=== PATIENT | female | born 1945 | race Two or more races ===

== ENCOUNTER 2020-05-31 14:01 | Inpatient (IN) | payer OTHER ==
[2020-05-31 14:18] VITALS: BMI 29.2
--- NOTE | 2020-05-31 14:35 | PDOC ---
History of Present Illness - General Chief Complaint: Palpitations Stated Complaint: HEART RACING History Source: Patient Exam Limitations: No Limitations - History of Present Illness Initial Comments: 05/31/20 14:32 74 yo F with h/o CHF, HTN here with c/o palpitations and sob x 2 days. pt describes racing heart beats. feels fatigued with walking. palpitations come and go worse when walking. no h/o pe or dvt. no known h/o covid. no f/c no cough. does report a sore throat. no recent leg swelling. no f/c no chest pain. no prior cardiac workup, does not smoke, family h/o CAD mother with RI in 50's Past History - Medical History Allergies/Adverse Reactions: Allergies Allergy/AdvReac Type Severity Reaction Status Date / Time No Known Allergies Allergy Verified 05/31/20 14:08 Home Medications: Ambulatory Orders Famotidine [Pepcid] 40 mg PO DAILY 05/31/20 Hydrochlorothiazide 25 mg PO DAILY 05/31/20 Losartan Potassium 50 mg PO DAILY 05/31/20 COPD: No HTN: Yes - Reproductive History Is Patient Now?: No - Psycho-Social/Smoking History Smoking History: Never smoked - Substance Abuse Hx (Audit-C & DAST Scrn) How often the patient has a drink containing alcohol: Never Score: In Men: 4 or > Positive; In Women: 3 or > Positive: 0 Screen Result (Pos requires Nsg. Audit-10AR): Negative In the last yr the pt used illegal drug/Rx for NonMed reason: No Score: Yes response is considered Positive: 0 Screen Result (Positive result requires Nsg. DAST-10): Negative Review of Systems - Review of Systems Constitutional: No: Chills, Fever HEENTM: Yes: Throat Pain. No: Eye Pain Respiratory: Yes: Shortness of Breath. No: Cough Cardiac (ROS): Yes: Palpitations. No: Chest Pain ABD/GI: No: See HPI, Abdominal Distended : No: Burning, Dysuria, Discharge, Lesions Integumentary: No: Bruising, Change in Color All Other Systems: Reviewed and Negative *Physical Exam - Vital Signs Last Vital Signs Temp Pulse Resp BP Pulse Ox 98.8 F 62 17 122/67 100 05/31/20 14:01 05/31/20 14:01 05/31/20 14:01 05/31/20 14:01 05/31/20 14:01 - Physical Exam 05/31/20 14:34 awake alert lungs clear bilat normal effort. heart rrr no mrg ab dsoft nt nd ext wwp. no appreicated edema. no calf tenderenss. Heart Score/ECG Review #1 General ECG Interpretation: Sinus Rhythm, Normal Rate, Normal Intervals, No acute ischemic changes (TWI III only.) ED Treatment Course - LABORATORY CBC & Chemistry Diagram: 05/31/20 14:30 05/31/20 14:30 Medical Decision Making - Medical Decision Making 05/31/20 14:34 74 yo F with h/o htn chf here w c/o sob and palpitations. differerential anemia. acs. dysrhythmia, electrolyte abnormality, 05/31/20 16:25 pt with normal labs except mild elevation trop 0.6. ekg sinus bradycardia. no st elevation or depression. cxr with bibasilar changes, questionable infiltrate at left base. bnp normal. possible covid vs. myocarditis, vs angina, mi. given assa. will admit to telemetry. Discharge - Discharge Information Problems reviewed: Yes Clinical Impression/Diagnosis: Palpitations, ACS (acute coronary syndrome), Suspected COVID-19 virus infection , Elevated troponin I level Condition: Stable - Admission Yes - Follow up/Referral - Patient Discharge Instructions - Post Discharge Activity
[2020-05-31 14:55] LABS: BASO % 0.9 % (0-2.0); EOS % 1.5 % (0-4.5); HEMATOCRIT 36.7 % (32.4-45.2); HEMOGLOBIN 12.1 GM/dl (10.7-15.3); LYMPH % 31.5 % (8-40); MCH 29.5 pg (25.7-33.7); MCHC 32.8 g/dl (32.0-36.0); MEAN CELL VOLUME 89.9 fl (80-96); MONO % 8.6 % (3.8-10.2); NEUT % 57.5 % (42.8-82.8); PLATELET COUNT 282 K/MM3 (134-434); RBC 4.09 M/mm3 (3.60-5.2); RDW 12.7 % (11.6-15.6); WHITE BLOOD COUNT 6.2 K/mm3 (4.0-10.8)
[2020-05-31 15:02] LABS: ALBUMIN 3.7 g/dl (3.4-5.0); BILIRUBIN,TOTAL 1.4 mg/dl (0.2-1); CALCIUM 8.9 mg/dl (8.5-10); CREATININE 0.7 mg/dl (0.55-1.3); POTASSIUM 3.1 mmol/L (3.5-5.1); TOT PROT 6.8 g/dl (6.4-8.2)
[2020-05-31] MEDS ORDERED: ASPIRIN 81 MG CHEWABLE TABLETS PO ONE (15:17)
[2020-05-31] MEDS ORDERED: POTASSIUM CHLORIDE TABS 20 MEQ TABLET.ER (FP) PO ONE ×2 (15:18→15:19)
[2020-05-31] MEDS ORDERED: ASPIRIN 81 MG CHEWABLE TABLETS ONE (15:19)
[2020-05-31 16:18] LABS: N-TERMINAL BNP 274.2 pg/ml (5-450)
[2020-05-31 18:12] LABS: EPITHELIAL CELLS FEW /hpf
--- NOTE | 2020-05-31 22:03 | HP ---
CHIEF COMPLAINT: Palpations, SOB PCP: HISTORY OF PRESENT ILLNESS: This is a 74 y/o female with a PMHx of HTN, GERD. Who presents to the ED with palpations and SOB x started while at rest. Patient describes the palpations as 3 horses running across her chest lasting 30-40 minutes with SOB. She denies having chest pain, fever, chills, cough, dizziness, NICKERSON, nausea, diarrhea, constipation, dysuria. Patient denies sick contacts or recent travel. ER course was notable for: (1) EKG- Sinus Bradycardia with nonspecfic T wave abnormality (2) Chest Xray- cardiomegaly, increased markings, ? infiltrate left base (3) Troponin- 0.06 Recent Travel: None PAST MEDICAL HISTORY: HTN GERD PAST SURGICAL HISTORY: C- Section Social History: Smoking: Never Alcohol: None Drugs: None Lives with spouse, independent Allergies No Known Allergies Allergy (Verified 05/31/20 14:08) HOME MEDICATIONS: Home Medications Medication Instructions Recorded Famotidine [Pepcid] 40 mg PO DAILY 05/31/20 Hydrochlorothiazide 25 mg PO DAILY 05/31/20 Losartan Potassium 50 mg PO DAILY 05/31/20 REVIEW OF SYSTEMS CONSTITUTIONAL: Absent: fever, chills, diaphoresis, generalized weakness, malaise, loss of appetite, weight change HEENT: Absent: rhinorrhea, nasal congestion, throat pain, throat swelling, difficulty swallowing, mouth swelling, ear pain, eye pain, visual changes CARDIOVASCULAR: palpitations Absent: chest pain, syncope, irregular heart rate, lightheadedness, peripheral edema RESPIRATORY: shortness of breath Absent: cough, dyspnea with exertion, orthopnea, wheezing, stridor, hemoptysis GASTROINTESTINAL: Absent: abdominal pain, abdominal distension, nausea, vomiting, diarrhea, constipation, melena, hematochezia GENITOURINARY: Absent: dysuria, frequency, urgency, hesitancy, hematuria, flank pain, genital pain MUSCULOSKELETAL: Absent: myalgia, arthralgia, joint swelling, back pain, neck pain SKIN: Absent: rash, itching, pallor HEMATOLOGIC/IMMUNOLOGIC: Absent: easy bleeding, easy bruising, lymphadenopathy, frequent infections ENDOCRINE: Absent: unexplained weight gain, unexplained weight loss, heat intolerance, cold intolerance NEUROLOGIC: Absent: headache, focal weakness or paresthesias, dizziness, unsteady gait, seizure, mental status changes, bladder or bowel incontinence PSYCHIATRIC: Absent: anxiety, depression, suicidal or homicidal ideation, hallucinations. PHYSICAL EXAMINATION Vital Signs - 24 hr 05/31/20 05/31/20 05/31/20 14:01 14:45 15:36 Temperature 98.8 F Pulse Rate 62 Pulse Rate [ 54 L 55 L Apical] Respiratory 17 10 18 Rate Blood Pressure 122/67 Blood Pressure 111/55 L 124/55 L [Left Arm] O2 Sat by Pulse 100 99 100 Oximetry (%) 05/31/20 05/31/20 05/31/20 16:24 18:31 20:00 Temperature 99.4 F 98.2 F Pulse Rate 60 57 L Pulse Rate [ 54 L Apical] Respiratory 18 18 16 Rate Blood Pressure 112/46 L 119/62 Blood Pressure 133/57 L [Left Arm] O2 Sat by Pulse 100 99 Oximetry (%) GENERAL: Awake, alert, and fully oriented, in no acute distress. HEAD: Normal with no signs of trauma. EYES: Pupils equal, round and reactive to light, extraocular movements intact, sclera anicteric, conjunctiva clear. No lid lag. EARS, NOSE, THROAT: Ears normal, nares patent, oropharynx clear without exudates. Moist mucous membranes. NECK: Normal range of motion, supple without lymphadenopathy, JVD, or masses. LUNGS: Breath sounds equal, clear to auscultation bilaterally. No wheezes, and no crackles. No accessory muscle use. HEART: Regular rate and rhythm, normal S1 and S2 without murmur, rub or gallop. ABDOMEN: Soft, nontender, not distended, normoactive bowel sounds, no guarding, no rebound, no masses. No hepatomegaly or splenomegaly. MUSCULOSKELETAL: Normal range of motion at all joints. No bony deformities or tenderness. No CVA tenderness. UPPER EXTREMITIES: 2+ pulses, warm, well-perfused. No cyanosis. No clubbing. No peripheral edema. LOWER EXTREMITIES: 2+ pulses, warm, well-perfused. No calf tenderness. No peripheral edema. NEUROLOGICAL: Cranial nerves II-XII intact. Normal speech. Gait not observed. PSYCHIATRIC: Cooperative. Good eye contact. Appropriate mood and affect. SKIN: Warm, dry, normal turgor, no rashes or lesions noted, normal capillary refill. Laboratory Results - last 24 hr 05/31/20 05/31/20 05/31/20 14:30 14:30 14:30 WBC 6.2 RBC 4.09 Hgb 12.1 Hct 36.7 MCV 89.9 MCH 29.5 MCHC 32.8 RDW 12.7 Plt Count 282 MPV 9.0 Absolute Neuts (auto) 3.6 Neutrophils % 57.5 Lymphocytes % 31.5 Monocytes % 8.6 Eosinophils % 1.5 Basophils % 0.9 D-Dimer Sodium 135 L Potassium 3.1 L Chloride 101 Carbon Dioxide 27 Anion Gap 7 L BUN 13.0 Creatinine 0.7 Est GFR (CKD-EPI)AfAm 97.54 Est GFR (CKD-EPI)NonAf 84.16 Random Glucose 122 H Calcium 8.9 Ferritin Total Bilirubin 1.4 H AST 23 ALT 17 Alkaline Phosphatase 59 LD Total Troponin I 0.06 H B-Natriuretic Peptide 274.2 Total Protein 6.8 Albumin 3.7 Urine Color Urine Appearance Urine pH Urine Protein Urine Glucose (UA) Urine Ketones Urine Blood Urine Nitrite Urine Bilirubin Urine Urobilinogen Ur Leukocyte Esterase Urine RBC Urine WBC Ur Transition Epith Cell 05/31/20 05/31/20 05/31/20 17:00 17:00 17:00 WBC RBC Hgb Hct MCV MCH MCHC RDW Plt Count MPV Absolute Neuts (auto) Neutrophils % Lymphocytes % Monocytes % Eosinophils % Basophils % D-Dimer 225 Sodium Potassium Chloride Carbon Dioxide Anion Gap BUN Creatinine Est GFR (CKD-EPI)AfAm Est GFR (CKD-EPI)NonAf Random Glucose Calcium Ferritin 166.2 Total Bilirubin AST ALT Alkaline Phosphatase LD Total 127 Troponin I B-Natriuretic Peptide Total Protein Albumin Urine Color Yellow Urine Appearance Clear Urine pH 6.5 Urine Protein Negative Urine Glucose (UA) Negative Urine Ketones Negative Urine Blood Trace-intact Urine Nitrite Negative Urine Bilirubin Negative Urine Urobilinogen 0.2 Ur Leukocyte Esterase Negative Urine RBC 0-2 Urine WBC 0-1 Ur Transition Epith Cell Few ASSESSMENT/PLAN: This is a 74 y/o female with a PMHx of HTN, GERD. Admitted for ACS, Troponinemia, SVT unknown etiology for further evaluation of their emergent condition. Plan: See Problem List DVT ppx OOB SCDs Heparin SQ Code Status: Full Code Dispo: Requires Inpatient Care Family Medical History Family History: As Documented Family Hx Coronary Artery Disease: Mother (HTN) Family Hx Diabetes: Father Problem List - Problem (1) ACS (acute coronary syndrome) Assessment/Plan: r/o [place] HEART Score 4 TAMARA 2 Serial Enzymes Chest Xray reviewed EKG- SB TWI Appreciate Cardiology consult Asa given in ED, will continue Continue cardiac monitoring Echo- defer to Technical Services Analyst Code(s): I24.9 - ACUTE ISCHEMIC HEART DISEASE, UNSPECIFIED (2) Palpitations Assessment/Plan: r/o ACS vs Suspected COVID 19 Infection Chest Xray- reviewed Appreciate Cardiology consult Continue cardiac monitoring Monitor CBC, CMP Code(s): R00.2 - PALPITATIONS (3) Suspected COVID-19 virus infection Assessment/Plan: SMART-AGENT BASED MODELER 0, low risk COVID PCR-pending Strict Isolation Precautions Code(s): Z20.828 - CONTACT W AND EXPOSURE TO OTH VIRAL COMMUNICABLE DISEASES (4) Elevated troponin I level Assessment/Plan: r/o [place] Serial enzymes Appreciate Cardiology consult EKG- SB with TWI Chest Xray reviewed- cardiomegaly, central markings, ?infiltrate developing at left base Asa given, will continue Monitor CMP Continue cardiac monitoring Code(s): R79.89 - OTHER SPECIFIED ABNORMAL FINDINGS OF BLOOD CHEMISTRY (5) HTN (hypertension) Assessment/Plan: stable Monitor BP Continue home med Code(s): I10 - ESSENTIAL (PRIMARY) HYPERTENSION (6) GERD (gastroesophageal reflux disease) Assessment/Plan: stable Continue PPI Code(s): K21.9 - GASTRO-ESOPHAGEAL REFLUX DISEASE WITHOUT ESOPHAGITIS Visit type - Medication Review Med list reviewed for High Risk Meds patients 65 and older: Yes - Emergency Visit Emergency Visit: Yes ED Registration Date: 05/31/20 Care time: The patient presented to the Emergency Department on the above date and was hospitalized for further evaluation of their emergent condition. - New Patient This patient is new to me today: Yes Date on this admission: 05/31/20 - Critical Care Critical Care patient: No
--- NOTE | 2020-06-01 06:09 | CON.CARD ---
Consult Consult Specialty:: Cardiology Referred by:: Swetha Reason for Consultation:: palpitations - History of Present Illness Chief Complaint: Palpitations History of Present Illness: 74 F admitted with palpitations for several days and possible lung infiltrate. We are called for an initial low/equivocal TnI. one month of exertional fatigue; yesterday around 4am started feeling rapid palpitations and came to ER. No CP/syncope/dizziness/edema. No fevers. TELE: thus far benign with NSR, nocturnal sinus odilia. 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: Alzheimer's, CVA, Dementia, Migraine, Multiple Sclerosis, Peripheral Neuropathy, Parkinson's, Seizure, Syncope, TIA, Vertigo, Other Cardio/Vascular: Yes: HTN Pulmonary: No: Asthma, Bronchitis, Cancer, COPD, O2 Dependent, Pneumonia, Previously Intubated, Pulmonary Embolus, Pulmonary Fibrosis, Sleep Apnea, Other Gastrointestinal: Yes: GERD Hepatobiliary: No: Cirrhosis, Cholelithiasis, Cholecystitis, Choledocholithiasis, Hepatitis A, Hepatitis B, Hepatitis C, Other Renal/: No: Renal Failure, Renal Inusuff, BPH, Cancer, Hematuria, Hemodialysis, Neurogenic Bladder, Renal Calculi, UTI, Other Reproductive: No: Ectopic , Endometriosis, Fibroids, PID, Polycystic Ovary Syndrome, Postmenopausal, Other ...: No Heme/Onc: No: Anemia, B12 Deficiency, Bleeding Disorder, Cancer, Current Chemotherapy, Current Radiation Therapy, Hemochromatosis, Hypercoaguable State, Myeloproliferative Synd, Sickle Cell Disease, Sickle Cell Trait, Thr ombocytopenia, Other Infectious Disease: No: AIDS, C-Diff, Herpes Zoster, HIV, MRSA, STD's, Tuberculosis, VREF, Other Psych: No: Addictions, Anxiety, Bipolar, Depression, Panic, Psychosis, Schizophrenia, Other Musculoskeletal: No: Bursitis, Chronic low back pain, Hemiparesis, Hemiplegia, Osteoarthritis, Paraplegia, Other Rheumatology: No: Fibromyalgia, Gout, Lupus, Rheumatoid Arthritis, Sarcoidosis, Vasculitis, Other - Alcohol/Substance Use Hx Alcohol Use: No History of Substance Use: reports: None - Smoking History Smoking history: Never smoked Have you smoked in the past 12 months: No - Social History Usual Living Arrangement: With Spouse History of Recent Travel: No Home Medications - Allergies Allergies/Adverse Reactions: Allergies Allergy/AdvReac Type Severity Reaction Status Date / Time No Known Allergies Allergy Verified 05/31/20 14:08 - Home Medications Home Medications: Ambulatory Orders Famotidine [Pepcid] 40 mg PO DAILY 05/31/20 Hydrochlorothiazide 25 mg PO DAILY 05/31/20 Losartan Potassium 50 mg PO DAILY 05/31/20 Family Medical History Family Hx Coronary Artery Disease: Mother (HTN) Family Hx Diabetes: Father Review of Systems - Review of Systems Constitutional: reports: No Symptoms Eyes: reports: No Symptoms HENT: reports: No Symptoms Neck: reports: No Symptoms Cardiovascular: reports: Palpitations Respiratory: reports: Exercise Intolerance Gastrointestinal: reports: No Symptoms Genitourinary: reports: No Symptoms Breasts: reports: No Symptoms Reported Musculoskeletal: reports: No Symptoms Integumentary: reports: No Symptoms Neurological: reports: No Symptoms Endocrine: reports: No Symptoms Hematology/Lymphatic: reports: No Symptoms Psychiatric: reports: No Symptoms - Risk Factors Known Risk Factors: Yes: Hypertension Vital Signs: Vital Signs Temperature 97.7 F 06/01/20 02:00 Pulse Rate 59 L 06/01/20 02:00 Respiratory Rate 18 06/01/20 02:00 Blood Pressure 127/70 06/01/20 02:00 O2 Sat by Pulse Oximetry (%) 99 05/31/20 21:00 Constitutional: Yes: No Distress, Calm Eyes: Yes: Conjunctiva Clear HENT: Yes: Atraumatic Neck: Yes: Supple, Trachea Midline Respiratory: Yes: Regular, CTA Bilaterally Gastrointestinal: Yes: Normal Bowel Sounds, Soft Cardiovascular: Yes: Regular Rate and Rhythm JVD: No Carotid Bruit: No PMI: Non-Displaced Heart Sounds: Yes: S1, S2 (rrr, no murmurs) Edema: No Peripheral Pulses WNL: Yes Integumentary: Yes: WNL Neurological: Yes: Alert, Oriented ...Motor Strength: WNL Psychiatric: Yes: WNL - Other Data Labs, Other Data: CBC, BMP 05/31/20 14:30 05/31/20 14:30 Troponin, BNP 05/31/20 05/31/20 05/31/20 14:30 14:30 21:30 Troponin I 0.06 H 0.05 B-Natriuretic Peptide 274.2 Troponin, BNP 05/31/20 05/31/20 05/31/20 14:30 14:30 21:30 Troponin I 0.06 H 0.05 B-Natriuretic Peptide 274.2 Laboratory Tests 05/31/20 05/31/20 05/31/20 14:30 14:30 17:00 WBC Hgb Plt Count D-Dimer 225 Sodium Potassium Chloride Creatinine LD Total Troponin I 0.06 H TSH COVID-19 (ELIJAH) Pending 05/31/20 05/31/20 06/01/20 17:00 21:30 05:52 WBC Hgb Plt Count D-Dimer Sodium 141 Potassium 3.9 Chloride 105 Creatinine 0.7 LD Total 127 Troponin I 0.05 0.02 TSH 1.46 COVID-19 (ELIJAH) 06/01/20 05:52 WBC 5.5 Hgb 11.8 Plt Count 229 D-Dimer Sodium Potassium Chloride Creatinine LD Total Troponin I TSH COVID-19 (ELIJAH) see HPI Echo: Pending Imaging - Results X-ray: Report Reviewed EKG: Image Reviewed Assessment/Plan IMP: Palpitations Possible early PNA vs atelectasis Low level equivocal TnI Sinus bradycardia Chronic controlled HTN REC: 1. Palpitations: r/o arrhythmia -Tele x 24 hours. If benign, d/c in AM and plan for outpatient cardiac f/u for extended outpt monitor -Echo for EF assessment. 2. Equivocal TnI: -Flat trend with normal CK, no symptoms concerning for ACS; ECG without ischemic changes -Echo: if EF normal, acceptable for outpatient stress test -Can start low dose ASA -Check fasting lipids 3. Sinus odilia: -Nocturnal due to increased vagal tone, consider outpt eval for SEBAS 4. PNA vs Atelectasis: as per PMD 5. HTN: well controlled
[2020-06-01 06:39] LABS: HEMATOCRIT 34.5 % (32.4-45.2); HEMOGLOBIN 11.8 GM/dL (10.7-15.3); MCH 29.8 pg (25.7-33.7); MCHC 34.2 g/dl (32.0-36.0); MEAN CELL VOLUME 87.2 fl (80-96); MEAN PLT VOLUME 8.9 fl (7.5-11.1); PLATELET COUNT 229 K/MM3 (134-434); RBC 3.95 M/mm3 (3.60-5.2); RDW 13.1 % (11.6-15.6); WHITE BLOOD COUNT 5.5 K/mm3 (4.0-10.0)
[2020-06-01 07:16] LABS: ALBUMIN 3.2 g/dl (3.4-5.0); BILIRUBIN,TOTAL 1.5 mg/dL (0.2-1); BLOOD UREA NITROGEN 16.3 mg/dL (7-18); CALCIUM 8.9 mg/dL (8.5-10.1); CREATININE 0.7 mg/dL (0.55-1.3); POTASSIUM 3.9 mmol/L (3.5-5.1); TOT PROT 6.8 g/dl (6.4-8.2)
--- NOTE | 2020-06-01 09:52 | PN ---
Physical Exam: SUBJECTIVE: Patient seen and examined at the bedside. Tells me that she did not have chest pain on admission, but feels of rapid heart rate along with shortness of breath especially when she ambulates. Also tells me that she has shortness of breath with physical activity. OBJECTIVE: Patient is a 74 year old female with a significant past medical history of HTN, GERD and pre-diabetes. Patient presents to the ED on 05/31/2020 with palpitations accompanied wit shortness of breath at rest. Covid negative, troponins initially elevated at 0.06, then normalized on repeat. chest xray shows LLL infiltrates. --- imaging: chest xray: left lower lobe infiltrate, for a chest ct echo: ef 60-65%, impaired LV relaxation, mild mr, mild tr tele monitoring: NSR, bradycardia 50-60s Vital Signs Period Temp Pulse Resp BP Sys/Ann Pulse Ox Last 24 Hr 97.7 F-99.4 F 53-62 10-18 111-134/46-70 99-100 GENERAL: The patient is awake, alert, and fully oriented, in no acute distress. HEAD: Normal with no signs of trauma. EYES: PERRL, extraocular movements intact, sclera anicteric, conjunctiva clear. No ptosis. ENT: Ears normal, nares patent, oropharynx clear without exudates, moist mucous membranes. NECK: Trachea midline, full range of motion, supple. LUNGS: LLL diminished, tolerating room air with stable oxygen saturations HEART: Regular rate and rhythm, S1, S2 without murmur, rub or gallop. ABDOMEN: Soft, nontender, nondistended, normoactive bowel sounds EXTREMITIES: no edema. left knee soft immobilizer. s/p fall a few weeks ago. follows with Dr. Thong Pleitez. NEUROLOGICAL: Normal speech, gait not observed. PSYCH: Normal mood, normal affect. SKIN: Warm, dry, normal turgor, no rashes or lesions noted Laboratory Results - last 24 hr 05/31/20 05/31/20 05/31/20 14:30 14:30 14:30 WBC 6.2 RBC 4.09 Hgb 12.1 Hct 36.7 MCV 89.9 MCH 29.5 MCHC 32.8 RDW 12.7 Plt Count 282 MPV 9.0 Absolute Neuts (auto) 3.6 Neutrophils % 57.5 Lymphocytes % 31.5 Monocytes % 8.6 Eosinophils % 1.5 Basophils % 0.9 D-Dimer Sodium 135 L Potassium 3.1 L Chloride 101 Carbon Dioxide 27 Anion Gap 7 L BUN 13.0 Creatinine 0.7 Est GFR (CKD-EPI)AfAm 97.54 Est GFR (CKD-EPI)NonAf 84.16 Random Glucose 122 H Calcium 8.9 Ferritin Total Bilirubin 1.4 H AST 23 ALT 17 Alkaline Phosphatase 59 LD Total Troponin I 0.06 H B-Natriuretic Peptide 274.2 Total Protein 6.8 Albumin 3.7 TSH Urine Color Urine Appearance Urine pH Urine Protein Urine Glucose (UA) Urine Ketones Urine Blood Urine Nitrite Urine Bilirubin Urine Urobilinogen Ur Leukocyte Esterase Urine RBC Urine WBC Ur Transition Epith Cell 05/31/20 05/31/20 05/31/20 17:00 17:00 17:00 WBC RBC Hgb Hct MCV MCH MCHC RDW Plt Count MPV Absolute Neuts (auto) Neutrophils % Lymphocytes % Monocytes % Eosinophils % Basophils % D-Dimer 225 Sodium Potassium Chloride Carbon Dioxide Anion Gap BUN Creatinine Est GFR (CKD-EPI)AfAm Est GFR (CKD-EPI)NonAf Random Glucose Calcium Ferritin 166.2 Total Bilirubin AST ALT Alkaline Phosphatase LD Total 127 Troponin I B-Natriuretic Peptide Total Protein Albumin TSH Urine Color Yellow Urine Appearance Clear Urine pH 6.5 Urine Protein Negative Urine Glucose (UA) Negative Urine Ketones Negative Urine Blood Trace-intact Urine Nitrite Negative Urine Bilirubin Negative Urine Urobilinogen 0.2 Ur Leukocyte Esterase Negative Urine RBC 0-2 Urine WBC 0-1 Ur Transition Epith Cell Few 05/31/20 06/01/20 06/01/20 21:30 05:52 05:52 WBC 5.5 RBC 3.95 Hgb 11.8 Hct 34.5 MCV 87.2 MCH 29.8 MCHC 34.2 RDW 13.1 Plt Count 229 MPV 8.9 Absolute Neuts (auto) Neutrophils % Lymphocytes % Monocytes % Eosinophils % Basophils % D-Dimer Sodium 141 Potassium 3.9 Chloride 105 Carbon Dioxide 30 Anion Gap 5 L BUN 16.3 Creatinine 0.7 Est GFR (CKD-EPI)AfAm 97.54 Est GFR (CKD-EPI)NonAf 84.16 Random Glucose 128 H Calcium 8.9 Ferritin Total Bilirubin 1.5 H AST 16 ALT 20 Alkaline Phosphatase 63 LD Total Troponin I 0.05 0.02 B-Natriuretic Peptide Total Protein 6.8 Albumin 3.2 L TSH 1.46 Urine Color Urine Appearance Urine pH Urine Protein Urine Glucose (UA) Urine Ketones Urine Blood Urine Nitrite Urine Bilirubin Urine Urobilinogen Ur Leukocyte Esterase Urine RBC Urine WBC Ur Transition Epith Cell Active Medications Generic Name Dose Route Start Last Admin Trade Name Freq PRN Reason Stop Dose Admin Aspirin 81 mg 06/01/20 10:00 Ecotrin - PO DAILY ZENY Heparin Sodium (Porcine) 5,000 unit 06/01/20 10:00 Heparin - SQ BID ZENY Losartan Potassium 50 mg 06/01/20 10:00 Cozaar - PO DAILY ZENY ASSESSMENT/PLAN: Problem List - Problems (1) Chest pain Assessment/Plan: patient denies chest pain, describes episodes of palpitation accompanied with shortness of breath. initial troponin 0.06, repeat troponins x 2 were normal. tele with NSR, episodes of bradycardia 50s-60s. monitor on tele echo as noted above cardiology following Code(s): R07.9 - CHEST PAIN, UNSPECIFIED (2) Pre-diabetes Assessment/Plan: per daughter, PCP treating pre diabetes with diet control and close monitoring of ha1c, last a1c reported to be 6.7%. serum glucose not elevated on our labs. will order [id number] to monitor. Code(s): R73.03 - PREDIABETES (3) HTN (hypertension) Assessment/Plan: bp controlled on losartan 50mg daily Code(s): I10 - ESSENTIAL (PRIMARY) HYPERTENSION (4) Palpitations Assessment/Plan: now resolved, no arrythmias on cardiac cath rn. echo reviewed. Code(s): R00.2 - PALPITATIONS (5) SOB (shortness of breath) Assessment/Plan: tolerating room air, chest xray with noted LLL infiltrates. patient without fevers or leukocytosis. chest ct ordered Code(s): R06.02 - SHORTNESS OF BREATH (6) Suspected COVID-19 virus infection Assessment/Plan: ruled out by serology Code(s): Z20.828 - CONTACT W AND EXPOSURE TO OTH VIRAL COMMUNICABLE DISEASES (7) DVT prophylaxis Assessment/Plan: on heparin Code(s): Z29.9 - ENCOUNTER FOR PROPHYLACTIC MEASURES, UNSPECIFIED (8) Left knee pain Assessment/Plan: left knee pain after fall a few weeks ago. follows with Dr. Pleitez. on a soft knee immobilizer which she alterates with a brace. Code(s): M25.562 - PAIN IN LEFT KNEE Visit type - Emergency Visit Emergency Visit: Yes ED Registration Date: 05/31/20 Care time: The patient presented to the Emergency Department on the above date and was hospitalized for further evaluation of their emergent condition. - New Patient This patient is new to me today: Yes Date on this admission: 06/01/20 - Critical Care Critical Care patient: No - Discharge Referral Referred to [facility] Med P.C.: No - Medication Review Med list reviewed for High Risk Meds patients 65 and older: Yes
--- NOTE | 2020-06-01 09:59 | ECHO ---
Version: 1 Name: ABDIRAHMAN BERNABE Exam: Adult Echocardiogram Study Date: 06/01/2020, 8:52 AM Age: 74 Years MMode/2D Measurements & Calculations IVSd: 1.11 cm LVIDs: 2.25 cm LVIDd: 3.5 cm LVPWd: 1.06 cm ACS: 1.95 cm Ao root diam: 2.5 cm LVOT diam: 1.90 cm LA dimension: 3.5 cm Doppler Measurements & Calculations MV E max isaias: 80.5 cm/sec Med E/e': 12.1 MV A max isaias: 88.8 cm/sec Med Peak E' Isaias: 6.6 cm/sec MV E/A: 0.91 Lat E/e': 12.7 Lat Peak E' Isaias: 6.3 cm/sec Ao max P.0 mmHg FREDERICK(I,D): 2.17 cm Ao mean P.6 mmHg LV V1 mean: 58.0 cm/sec Ao V2 max: 122.2 cm/sec LV V1 mean P.62 mmHg Left Ventricle Left ventricular systolic function is normal. Ejection Fraction = 60-65%. The transmitral spectral D oppler flow pattern is suggestive of impaired LV relaxation. The left ventricular wall motion is normal. Right Ventricle The right ventricular systolic function is normal. Atria Normal left and right atrial size and function. Mitral Valve The mitral valve is normal in structure and function. There is no mitral valve stenosis. There is mi ld mitral regurgitation. Tricuspid Valve The tricuspid valve is normal in structure and function. There is mild tricuspid regurgitation. Righ t ventricular systolic pressure is normal. Aortic Valve The aortic valve opens well. The aortic valve is trileaflet. No hemodynamically significant valvular aortic stenosis. No aortic regurgitation is present. Pulmonic Valve The pulmonic valve is not well seen, but is grossly normal. There is no pulmonic valvular stenosis. Trace pulmonic valvular regurgitation. Great Vessels The aortic root is normal size. Pericardium/Pleura There is no pericardial effusion. Tech Comments Technically difficult study. Apical window very hard to get.-KT. Summary Statements Left ventricular systolic function is normal. Ejection Fraction = 60-65%. The transmitral spectral Doppler flow pattern is suggestive of impaired LV relaxation. The right ventricular systolic function is normal. There is mild mitral regurgitation. There is mild tricuspid regurgitation. Right ventricular systolic pressure is normal. No hemodynamically significant valvular aortic stenosis. The aortic root is normal size. There is no pericardial effusion. MD Padilla *Ezra 06/01/2020, 9:58 AM Ordering Physician: Randy Nur Referring Physician: RANDY NUR Performed By: Pao Castaneda
[2020-06-01] MEDS ORDERED: ENOXAPARIN NA (PORCINE) 40 MG/0.4 ML DISP.SYRIN SQ SCH (10:00)
[2020-06-01] MEDS: LOSARTAN POTASSIUM 50 MG TABLET PO SCH (10:16)
[2020-06-01] MEDS: ASPIRIN COATED 81 MG TABLET.EC PO SCH (10:16)
[2020-06-01] MEDS: HEPARIN NA (PORCINE) 5,000 UNITS/ML 1ML VIAL SQ SCH ×2 (10:17→21:33)
--- NOTE | 2020-06-01 10:27 | EKG ---
Test Reason : Blood Pressure : / mmHG Vent. Rate : 053 BPM Atrial Rate : 053 BPM P-R Int : 164 ms QRS Dur : 082 ms QT Int : 474 ms P-R-T Axes : 054 -22 -13 degrees QTc Int : 444 ms SINUS BRADYCARDIA NONSPECIFIC ST ABNORMALITY ABNORMAL ECG NO PREVIOUS ECGS AVAILABLE Confirmed by SORAYA NUR MD ([id number]) on 06/01/2020 10:27:38 AM Referred By: DEEPTI BACA Confirmed By:SORAYA NUR MD
--- NOTE | 2020-06-01 12:07 | PN ---
Progress Note (short form) - Note Progress Note: PULMONARY CONSULTATION DICTATED 06/01/20 IMP DYSPNEA ? CARDIAC PALPITATIONS ? LLL INFILTRATE DIASTOLIC DYSFUNCTION HTN GERD + TROPONIN PLAN SUPPLEMENTAL O2 F/U CHEST X-RAY IF NO CHANGE INCREASE LLL MARKING WILL ORDER CHEST CT TELEMETRY MONITORING TREND TROPONIN PFTS OUTPATIENT DR HANSEN Problem List - Problems (1) Pneumonia Code(s): J18.9 - PNEUMONIA, UNSPECIFIED ORGANISM (2) Elevated troponin I level Code(s): R79.89 - OTHER SPECIFIED ABNORMAL FINDINGS OF BLOOD CHEMISTRY (3) GERD (gastroesophageal reflux disease) Code(s): K21.9 - GASTRO-ESOPHAGEAL REFLUX DISEASE WITHOUT ESOPHAGITIS (4) HTN (hypertension) Code(s): I10 - ESSENTIAL (PRIMARY) HYPERTENSION (5) Palpitations Code(s): R00.2 - PALPITATIONS (6) SOB (shortness of breath) Code(s): R06.02 - SHORTNESS OF BREATH
--- NOTE | 2020-06-01 16:18 | CONS ---
DATE OF CONSULTATION: 06/01/2020 PULMONARY CONSULTATION REFERRING PHYSICIAN: Elissa Camara NP. HISTORY OF PRESENT ILLNESS: The patient is a 74-year-old female with a past medical history of hypertension, GERD, nonsmoker admitted to [facility] on May 31 with a complaint of shortness of breath and palpitations. The patient states today she described laying bed developing palpitations 30 to 40 minutes associated with shortness of breath. Denied any chest pain, nausea, vomiting, diaphoresis. Patient presented to the emergency room with the above. In the ER, she was noted to be bradycardic, also chest x-rays revealed positive infiltrates. Denied any fever or chills. Denied any chronic cough or hemoptysis. Patient states that she does have chronic shortness of breath with exertion. She apparently never told her doctor this, and then had extensive workup. On admission, she was evaluated by Dr. Munguia for cardiology consultation. PAST MEDICAL HISTORY: Again includes hypertension, GERD. REVIEW OF SYSTEMS: Positive shortness of breath, positive palpitations. No chest pain, no cough, no hemoptysis, no fever, no chills, no abdominal pain. CURRENT MEDICATIONS: Include: 1. Heparin subcutaneous. 2. Ecotrin. 3. Cozaar. SOCIAL HISTORY: Born in [place], moved to the [facility] many years ago. Denies any history of tobacco use. 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 PHYSICAL EXAMINATION: General: Reveals a well-developed, well-nourished female, awake, alert, in no acute distress. She is afebrile. Vital Signs: Heart rate is 62, O2 saturation 99% on room air. HEENT: Normocephalic, atraumatic. Neck: Supple. Heart: Regular S1, S2. Chest: Crackles on the left 1/3 up. Abdomen: Soft, bowel sounds positive. Extremities: No cyanosis, edema. Chest x-ray, partial infiltrate left base. LABORATORY: WBC is 5.5, hemoglobin 11.8, hematocrit 34.5 with a platelet count of 229,000. D-dimer is 225. BUN 16, creatinine 0.7. COVID is pending. Echo revealed normal left ventricular ejection fraction and impaired left ventricular relaxation. IMPRESSION: 1. Dyspnea cardiac possibly secondary to palpitations . 2. Increased markings to the left base and crackles on the left base left lung, possible pneumonia. 3. Diastolic dysfunction. 4. Hypertension. 5. Gastroesophageal reflux disease. 6. Positive troponins. PLAN: O2 as needed. Followup chest x-ray if no change increased lower lobe markings. Chest CT. Telemetry monitoring. Trend troponins. PFTs as outpatient. GEETHA HANSEN M.D. [id number]
[2020-06-02 07:01] VITALS: TEMP 97.9
[2020-06-02 08:32] LABS: EOS % 4.4 % (0-4.5); HEMATOCRIT 34.5 % (32.4-45.2); HEMOGLOBIN 11.7 GM/dL (10.7-15.3); LYMPH % 40.1 % (8-40); MCH 29.7 pg (25.7-33.7); MCHC 34.1 g/dl (32.0-36.0); MEAN CELL VOLUME 87.2 fl (80-96); MONO % 9.1 % (3.8-10.2); NEUT % 45.4 % (42.8-82.8); PLATELET COUNT 229 K/MM3 (134-434); RBC 3.95 M/mm3 (3.60-5.2); RDW 13.2 % (11.6-15.6); WHITE BLOOD COUNT 5.1 K/mm3 (4.0-10.0)
[2020-06-02 08:57] LABS: BILIRUBIN,TOTAL 0.9 mg/dL (0.2-1); BLOOD UREA NITROGEN 14.1 mg/dL (7-18); CALCIUM 8.9 mg/dL (8.5-10.1); CREATININE 0.7 mg/dL (0.55-1.3); MAGNESIUM 2.2 mg/dL (1.8-2.4); TOT PROT 6.6 g/dl (6.4-8.2)
[2020-06-02] MEDS: ASPIRIN COATED 81 MG TABLET.EC PO SCH (09:51)
[2020-06-02] MEDS: HEPARIN NA (PORCINE) 5,000 UNITS/ML 1ML VIAL SQ SCH (09:52)
[2020-06-02] MEDS: LOSARTAN POTASSIUM 50 MG TABLET PO SCH (09:52)
--- NOTE | 2020-06-02 10:07 | PN ---
Progress Note (short form) - Note Progress Note: Chief Complaint: Palpitations History of Present Illness: 74 F admitted with palpitations for several days and possible lung infiltrate. We are called for an initial low/equivocal TnI. one month of exertional fatigue; yesterday around 4am started feeling rapid palpitations and came to ER. No CP/syncope/dizziness/edema. No fevers. s: feeling well, no cp sob palps dizzy Current Medications Generic Name Dose Route Start Last Admin Trade Name Chidi PRN Reason Stop Dose Admin Aspirin 81 mg 06/01/20 10:00 06/02/20 09:51 Ecotrin - PO 81 mg DAILY ZENY Administration Heparin Sodium (Porcine) 5,000 unit 06/01/20 10:00 06/02/20 09:52 Heparin - SQ 5,000 unit BID ZENY Administration Losartan Potassium 50 mg 06/01/20 10:00 06/02/20 09:52 Cozaar - PO 50 mg DAILY ZENY Administration Vital Signs Period Temp Pulse Resp BP Sys/Ann Pulse Ox Last 24 Hr 97.5 F-98.3 F 52-70 16-18 121-142/54-68 93-100 Constitutional: Yes: No Distress, Calm Eyes: Yes: Conjunctiva Clear HENT: Yes: Atraumatic Neck: Yes: Supple, Trachea Midline Respiratory: Yes: Regular, CTA Bilaterally Gastrointestinal: Yes: Normal Bowel Sounds, Soft Cardiovascular: Yes: Regular Rate and Rhythm JVD: No Carotid Bruit: No PMI: Non-Displaced Heart Sounds: Yes: S1, S2 (rrr, no murmurs) Edema: No Peripheral Pulses WNL: Yes Integumentary: Yes: WNL Neurological: Yes: Alert, Oriented CBC, BMP 06/02/20 07:40 06/02/20 07:40 tele:sr Imaging - Results X-ray: Report Reviewed EKG: Image Reviewed Assessment/Plan IMP: Palpitations Possible early PNA vs atelectasis Low level equivocal TnI Sinus bradycardia Chronic controlled HTN REC: 1. Palpitations: r/o arrhythmia -palps resolved. Tele and echo benign. cardiac kelly ok for dc with outpatient cardiac f/u for extended outpt monitor 2. Equivocal TnI: -Flat trend with normal CK, no symptoms concerning for ACS; ECG without ischemic changes -Echo unremarkable, acceptable for outpatient stress test -Can start low dose ASA 3. Sinus odilia: -Nocturnal due to increased vagal tone, consider outpt eval for SEBAS 4. PNA vs Atelectasis: as per PMD 5. HTN: well controlled
--- NOTE | 2020-06-02 10:43 | PN ---
Progress Note (short form) - Note Progress Note: PULMONARY Denies shortness of breath, cough. No fevers. Going to CT scan. Vital Signs Period Temp Pulse Resp BP Sys/Ann Pulse Ox Last 24 Hr 97.5 F-98.3 F 52-70 16-18 121-142/54-68 93-100 Gen: NAD at rest Heart: RRR Lung: decreased breath sounds at the bases Abd: soft, nontender Ext: no edema CBC, BMP 06/02/20 07:40 06/02/20 07:40 Active Medications Aspirin (Ecotrin -) 81 mg PO DAILY [facility] Last Admin: 06/02/20 09:51 Dose: 81 mg Documented by: Atorvastatin Calcium (Lipitor -) 40 mg PO HS [facility] Heparin Sodium (Porcine) (Heparin -) 5,000 unit SQ BID [facility] Last Admin: 06/02/20 09:52 Dose: 5,000 unit Documented by: Losartan Potassium (Cozaar -) 50 mg PO DAILY [facility] Last Admin: 06/02/20 09:52 Dose: 50 mg Documented by: A/P Shortness of Breath LV Diastolic Dysfunction HTN GERD - f/u CT chest - outpt PFTs - DVT prophylaxis
--- NOTE | 2020-06-02 14:15 | DS ---
Physical Exam: SUBJECTIVE: Patient seen and examined at the bedside. no further chest pain or shortness of breath. she wants to go home and follow up outpatient. she has a PCP that is monitoring her pre diabetes. OBJECTIVE: Patient is a 74 year old female with a significant past medical history of HTN, GERD and pre-diabetes. Patient presents to the ED on 05/31/2020 with palpitations accompanied wit shortness of breath at rest. Covid negative, troponins initially elevated at 0.06, then normalized on repeat. chest xray shows LLL infiltrates. Chest CT shows mild cardiomegaly, mild bilateral int. thickening, parachymal opacities on basis of mild pulmonary congestion. see problem list below. --- imaging: chest xray: left lower lobe infiltrate, echo: ef 60-65%, impaired LV relaxation, mild mr, mild tr tele monitoring: NSR, bradycardia 50-60s Vital Signs Period Temp Pulse Resp BP Sys/Ann Pulse Ox Last 24 Hr 97.5 F-97.9 F 52-70 17-18 121-142/59-68 93-100 PHYSICAL EXAM GENERAL: The patient is awake, alert, and fully oriented, in no acute distress. HEAD: Normal with no signs of trauma. EYES: PERRL, extraocular movements intact, sclera anicteric, conjunctiva clear. No ptosis. ENT: Ears normal, nares patent, oropharynx clear without exudates, moist mucous membranes. NECK: Trachea midline, full range of motion, supple. LUNGS: LLL diminished, tolerating room air with stable oxygen saturations HEART: Regular rate and rhythm, S1, S2 without murmur, rub or gallop. ABDOMEN: Soft, nontender, nondistended, normoactive bowel sounds EXTREMITIES: no edema. left knee soft immobilizer. s/p fall a few weeks ago. follows with Dr. Thong Pleitez. NEUROLOGICAL: Normal speech, gait not observed. PSYCH: Normal mood, normal affect. SKIN: Warm, dry, normal turgor, no rashes or lesions noted LABS Laboratory Results - last 24 hr 05/31/20 06/02/20 06/02/20 14:30 07:40 07:40 WBC RBC Hgb Hct MCV MCH MCHC RDW Plt Count MPV Absolute Neuts (auto) Neutrophils % Lymphocytes % Monocytes % Eosinophils % Basophils % Nucleated RBC % Sodium 139 Potassium 4.0 Chloride 106 Carbon Dioxide 28 Anion Gap 4 L BUN 14.1 Creatinine 0.7 Est GFR (CKD-EPI)AfAm 97.54 Est GFR (CKD-EPI)NonAf 84.16 Random Glucose 126 H Hemoglobin A1c % 6.7 H Calcium 8.9 Magnesium 2.2 Total Bilirubin 0.9 AST 15 ALT 18 Alkaline Phosphatase 61 Total Protein 6.6 Albumin 3.0 L Triglycerides 112 Cholesterol 200 Total LDL Cholesterol 128 H HDL Cholesterol 59 COVID-19 (ELIJAH) Not detected 06/02/20 07:40 WBC 5.1 RBC 3.95 Hgb 11.7 Hct 34.5 MCV 87.2 MCH 29.7 MCHC 34.1 RDW 13.2 Plt Count 229 MPV 9.0 Absolute Neuts (auto) 2.3 Neutrophils % 45.4 Lymphocytes % 40.1 H Monocytes % 9.1 Eosinophils % 4.4 Basophils % 1.0 Nucleated RBC % 0 Sodium Potassium Chloride Carbon Dioxide Anion Gap BUN Creatinine Est GFR (CKD-EPI)AfAm Est GFR (CKD-EPI)NonAf Random Glucose Hemoglobin A1c % Calcium Magnesium Total Bilirubin AST ALT Alkaline Phosphatase Total Protein Albumin Triglycerides Cholesterol Total LDL Cholesterol HDL Cholesterol COVID-19 (ELIJAH) HOSPITAL COURSE: Date of Admission:05/31/20 Date of Discharge: 06/02/20 Minutes to complete discharge: 45 Discharge Summary Problems reviewed: Yes Reason For Visit: ACS R/O COVID PALPITATIONS Current Active Problems ACS (acute coronary syndrome) (Acute) Chest pain (Acute) DVT prophylaxis (Acute) Elevated troponin I level (Acute) GERD (gastroesophageal reflux disease) (Acute) HTN (hypertension) (Acute) Left knee pain (Acute) Palpitations (Acute) Pneumonia (Acute) Pre-diabetes (Acute) SOB (shortness of breath) (Acute) Suspected COVID-19 virus infection (Acute) Condition: Stable - Instructions Diet, Activity, Other Instructions: Mrs Ross: You were admitted for chest pain and palpitations and your cardiac workup is negative. We will be sending you home today as you have been cleared by the project scientist for outpatient followup. Please start taking: LIPITOR 40mg once per day at bedtime, this medication is for your cholesterol START Aspirin 81mg ONCE per day for heart health and stroke prevention - This can be purchased over the counter CONTINUE all the other medications as outlined in this discharge paperwork Please follow up with Dr. Coronado (project scientist) so that you can schedule a stress test. Please see your primary care doctor for post hospital follow. You have pre diabetes, please continue to have your HmgA1c monitored every 3 months. Thank you for allowing us to care for you. Referrals: Duke Coronado MD [Staff Physician] - Disposition: HOME - Home Medications Comprehensive Discharge Medication List: Ambulatory Orders Famotidine [Pepcid] 40 mg PO DAILY 05/31/20 Hydrochlorothiazide 25 mg PO DAILY 05/31/20 Losartan Potassium 50 mg PO DAILY 05/31/20 Aspirin Coated [Ecotrin -] 81 mg PO DAILY #0 tablet.ec 06/02/20 Atorvastatin Ca [Lipitor] 40 mg PO HS tablet 06/02/20 Atorvastatin Ca [Lipitor] 40 mg PO HS #60 tablet 06/02/20 Problem List - Problems (1) Chest pain Assessment/Plan: patient denies chest pain, describes episodes of palpitation accompanied with shortness of breath. initial troponin 0.06, repeat troponins x 2 were normal. tele with NSR, episodes of bradycardia 50s-60s. no events on tele echo as noted above cardiology following and cleared for d/c home with outpatient follow up Code(s): R07.9 - CHEST PAIN, UNSPECIFIED (2) Pre-diabetes Assessment/Plan: per daughter, PCP treating pre diabetes with diet control and close monitoring of ha1c, last a1c reported to be 6.7%. serum glucose not elevated on our labs. hmga1c 6.7. patient to follow up with her PCP. Code(s): R73.03 - PREDIABETES (3) HTN (hypertension) Assessment/Plan: bp controlled on losartan 50mg daily Code(s): I10 - ESSENTIAL (PRIMARY) HYPERTENSION (4) Palpitations Assessment/Plan: now resolved, no arrythmias on conveyor monitor. echo reviewed. Code(s): R00.2 - PALPITATIONS (5) SOB (shortness of breath) Assessment/Plan: denies shortness of breath. tolerating room air, chest xray with noted LLL infiltrates. patient without fevers or leukocytosis. chest ct with mild venous congestion. Code(s): R06.02 - SHORTNESS OF BREATH (6) Suspected COVID-19 virus infection Assessment/Plan: ruled out by serology Code(s): Z20.828 - CONTACT W AND EXPOSURE TO OTH VIRAL COMMUNICABLE DISEASES (7) DVT prophylaxis Code(s): Z29.9 - ENCOUNTER FOR PROPHYLACTIC MEASURES, UNSPECIFIED (8) Left knee pain Assessment/Plan: left knee pain after fall a few weeks ago. follows with Dr. Pleitez. on a soft knee immobilizer which she alterates with a brace. Code(s): M25.562 - PAIN IN LEFT KNEE This patient is new to me today: No Emergency Visit: Yes ED Registration Date: 05/31/20 Care time: The patient presented to the Emergency Department on the above date and was hospitalized for further evaluation of their emergent condition. Critical Care patient: No - Discharge Referral Referred to [facility] Med P.C.: No
[2020-06-02 14:51] VITALS: BP 148/67; PULSE 66
[2020-06-02] MEDS ORDERED: ATORVASTATIN CA 40 MG TABLET (FP) PO SCH (22:00)
[2020-06-04 19:06] LABS: CK-MM 100 % (97-100)
== END 2020-06-02 17:00 | disposition home or self-care (01) | DRG 313 ==
LOC: FER 14:01 → J4S 17:16
PROVIDERS: ADMIT Internal Medicine; ATTEND Nurse Practitioner Family
DX: R07.9 Chest pain, unspecified (principal); J98.11 Atelectasis; R00.2 Palpitations; I10 Essential (primary) hypertension; K21.9 Gastro-esophageal reflux disease without esophagitis; R73.03 Prediabetes; I51.7 Cardiomegaly; R06.02 Shortness of breath; M25.562 Pain in left knee; R00.1 Bradycardia, unspecified
CPT/HCPCS: 36415; 71045-TC-FY; 71250-TC; 80053; 80061; 81003; 81015; 82552; 82728; 83036; 83615; 83721; 83735; 83880; 84443; 84484; 85025; 85027; 85379; 93005; 93306-TC; 99285-25; J1644; U0003

== ENCOUNTER 2020-11-11 20:33 | Emergency (ER) | payer OTHER ==
[2020-11-11 20:44] VITALS: BP 140/53; PULSE 65; TEMP 98.4; BMI 25.9
== END 2020-11-11 23:00 | disposition home or self-care (01) ==
LOC: JER 20:33
DX: K59.00 Constipation, unspecified (principal)
CPT/HCPCS: 99284-25

== ENCOUNTER 2020-11-26 09:57 | Day surgery (SDC) | payer OTHER ==
[2020-11-26 10:26] VITALS: BMI 28.3
[2020-11-26 12:17] VITALS: TEMP 98
[2020-11-26 13:12] VITALS: BP 139/72; PULSE 56
== END 2020-11-26 13:11 | disposition home or self-care (01) ==
LOC: FASU-ENDO 09:57
PROVIDERS: ATTEND Internal Medicine Gastroenterology
PROC: 0DB98ZX Excision of Duodenum, Via Natural or Artificial Opening Endoscopic, Diagnostic (ICD-10-PCS; 2020-11-26)
PROC: 0DB78ZX Excision of Stomach, Pylorus, Via Natural or Artificial Opening Endoscopic, Diagnostic (ICD-10-PCS; 2020-11-26)
PROC: 0DJD8ZZ Inspection of Lower Intestinal Tract, Via Natural or Artificial Opening Endoscopic (ICD-10-PCS; principal; 2020-11-26 11:24)
DX: Z12.11 Encounter for screening for malignant neoplasm of colon (principal); K57.30 Diverticulosis of large intestine without perforation or abscess without bleeding; K44.9 Diaphragmatic hernia without obstruction or gangrene; K21.9 Gastro-esophageal reflux disease without esophagitis; R10.13 Epigastric pain
CPT/HCPCS: 43239; G0121; 88305-TC; 88342-TC

== ENCOUNTER 2021-04-17 11:09 | Emergency (ER) | payer OTHER ==
[2021-04-17 11:14] VITALS: BP 121/61; PULSE 56; TEMP 97.5; BMI 26.6
[2021-04-17 13:58] LABS: BASO % 0.6 % (0-2.0); EOS % 2.7 % (0-4.5); HEMATOCRIT 37.1 % (32.4-45.2); HEMOGLOBIN 12.6 GM/dL (10.7-15.3); LYMPH % 30.3 % (8-40); MCH 29.5 pg (25.7-33.7); MCHC 34.1 g/dl (32.0-36.0); MEAN CELL VOLUME 86.4 fl (80-96); MEAN PLT VOLUME 8.7 fl (7.5-11.1); MONO % 8.9 % (3.8-10.2); NEUT % 57.5 % (42.8-82.8); PLATELET COUNT 245 10^3/uL (134-434); RBC 4.29 M/mm3 (3.60-5.2); RDW 13.3 % (11.6-15.6); WHITE BLOOD COUNT 7.8 K/mm3 (4.0-10.0)
[2021-04-17 14:05] LABS: INR 1.2 (0.83-1.09); PROTHROMBIN TIME (PATIENT) 14.5 SEC (9.7-13.0)
[2021-04-17 14:16] LABS: CALCIUM 9.3 mg/dL (8.5-10.1)
[2021-04-17 14:17] LABS: ALBUMIN 3.9 g/dl (3.4-5.0)
[2021-04-17 14:20] LABS: CREATININE 0.7 mg/dL (0.55-1.3)
[2021-04-17 14:22] LABS: BILIRUBIN,TOTAL 1.3 mg/dL (0.2-1); TOT PROT 7.7 g/dl (6.4-8.2)
== END 2021-04-17 14:45 | disposition home or self-care (01) ==
LOC: JERFT 11:09
DX: R05 Cough (principal); R23.3 Spontaneous ecchymoses
CPT/HCPCS: 36415; 71046-TC-FY; 80053; 85025; 85610; 99284-25

== ENCOUNTER 2022-06-09 17:14 | Emergency (ER) | payer OTHER ==
[2022-06-09 17:52] VITALS: BP 141/71; PULSE 73; RESP 20; TEMP 98.2; BMI 26.6
== END 2022-06-09 18:38 | disposition home or self-care (01) ==
LOC: FER 17:14
DX: R22.41 Localized swelling, mass and lump, right lower limb (principal)
CPT/HCPCS: 73502-TC-RT-FY; 93971-TC; 99284-25

== ENCOUNTER 2025-01-29 10:04 | Emergency (ER) | payer OTHER ==
[2025-01-29 10:13] VITALS: BP 146/65; PULSE 58; RESP 18; TEMP 98; BMI 29.7
[2025-01-29] MEDS ORDERED: LIDOCAINE 5% TOPICAL PATCH ONE (10:52)
[2025-01-29] MEDS ORDERED: ACETAMINOPHEN 325 MG TABLET (FP) ONE (10:52)
[2025-01-29] MEDS: LIDOCAINE 5% TOPICAL PATCH TP ONE (11:03)
[2025-01-29] MEDS: ACETAMINOPHEN 325 MG TABLET (FP) PO ONE (11:03)
[2025-01-29] MEDS ORDERED: LIDOCAINE PATCH REMOVAL MC SCH (22:00)
== END 2025-01-29 11:55 | disposition home or self-care (01) ==
LOC: JER 10:04
DX: M54.2 Cervicalgia (principal); M79.601 Pain in right arm; M79.602 Pain in left arm; G89.29 Other chronic pain; M54.12 Radiculopathy, cervical region
CPT/HCPCS: 99283-25

== ENCOUNTER 2025-03-09 07:06 | Day surgery (SDC) | payer OTHER ==
[2025-03-02 15:18] VITALS: BMI 33.4
[2025-03-09] MEDS: DEXAMETHASONE SOD PHOSPHATE 10 MG/1 ML VIAL IVPUSH ONE
[2025-03-09] MEDS ORDERED: ACETAMINOPHEN 500 MG TABLET (FP) PO PRN (08:50)
[2025-03-09 10:30] VITALS: TEMP 97.7
[2025-03-09] MEDS ORDERED: DEXAMETHASONE SOD PHOSPHATE 10 MG/1 ML VIAL ONE (11:52)
[2025-03-09] MEDS: LIDOCAINE HCL 1% PRESERVATIVE FREE - 30ML VIAL IJ ONE ×2 (11:58)
[2025-03-09] MEDS: IOHEXOL 180 MG/1 ML ML IJ ONE ×2 (12:01)
[2025-03-09] MEDS: DEXAMETHASONE SOD PHOSPHATE 10 MG/1 ML VIAL IM ONE (12:02)
[2025-03-09 12:21] VITALS: BP 156/62; PULSE 56; RESP 20
== END 2025-03-09 12:50 | disposition home or self-care (01) ==
LOC: JASU-SURG 07:06
PROVIDERS: ATTEND Pain Medicine Pain Medicine
PROC: 3E0R3BZ Introduction of Anesthetic Agent into Spinal Canal, Percutaneous Approach (ICD-10-PCS; 2025-03-09)
PROC: 3E0R33Z Introduction of Anti-inflammatory into Spinal Canal, Percutaneous Approach (ICD-10-PCS; principal; 2025-03-09 11:15)
DX: M54.12 Radiculopathy, cervical region (principal)
CPT/HCPCS: 76000-TC-FY; J1100